=== PATIENT | male | born 1985 | race African-American/Black ===

== ENCOUNTER 2021-03-21 17:16 | Emergency (ER) | payer OTHER ==
[2021-03-21 17:30] VITALS: TEMP 97.8; BMI 29.6
[2021-03-21] MEDS ORDERED: ACETAMINOPHEN 325 MG TABLET (FP) PO ONE (17:48)
[2021-03-21] MEDS ORDERED: CYCLOBENZAPRINE HCL 10 MG TABLET (FP) PO ONE (17:48)
[2021-03-21] MEDS ORDERED: CYCLOBENZAPRINE HCL 5 MG TABLET PO ONE (17:48)
[2021-03-21] MEDS ORDERED: LIDOCAINE 5% TOPICAL PATCH TP ONE (17:48)
[2021-03-21] MEDS ORDERED: CYCLOBENZAPRINE HCL 10 MG TABLET (FP) ONE (18:06)
[2021-03-21 20:21] VITALS: BP 113/75; PULSE 70
== END 2021-03-21 22:29 | disposition home or self-care (01) ==
LOC: JER 17:16
DX: S13.9XXA Sprain of joints and ligaments of unspecified parts of neck, initial encounter (principal); S33.5XXA Sprain of ligaments of lumbar spine, initial encounter; S46.012A Strain of muscle(s) and tendon(s) of the rotator cuff of left shoulder, initial encounter
CPT/HCPCS: 71046-TC-FY; 71120-TC-FY; 72125-TC; 72128-TC; 72131-TC; 73030-TC-LT-FY; 99285-25

== ENCOUNTER 2022-07-04 14:49 | Emergency (ER) | payer BC, OTHER ==
[2022-07-04 14:54] VITALS: BP 140/72; PULSE 110; RESP 18; TEMP 100.8; BMI 26.9
[2022-07-04] MEDS ORDERED: IBUPROFEN 600 MG TABLET (FP) PO ONE (16:21)
== END 2022-07-04 17:38 | disposition home or self-care (01) ==
LOC: JER 14:49
DX: B34.9 Viral infection, unspecified (principal)
CPT/HCPCS: 0241U-QW; 99283-25